=== PATIENT | female | born 1995 | race Caucasian/White ===

== ENCOUNTER 2016-06-18 01:05 | Emergency (ER) | payer BC ==
[~2016-06-18] VITALS: Ht 172.7 cm; Wt 77.1 kg
[2016-06-18 01:07] VITALS: BP 125/71
--- NOTE | 2016-06-18 01:21 | NUR ---
PT BIB FAMILY C/O N/V X 3 HRS WITH MILD ABD CRAPIMG. N/V X 10, DIARRHEA MORE THAN 5. UA DONE, HGC -, PT DENIES ANY TRAUMA, SKIN IS INTACT, PALE/WARM/DRY; AAOX4, PERRL, WITH EVEN AND STEADY GAIT; LUNGS CLEAR BL, BREATHING UNLABORED; HR EVEN AND REGULAR, BL PERIPHERAL PULSES PRESENT; BS ACTIVE X4, NO TENDERNESS TO PALPATION. PT DENIES ANY FEVER, CP, SOB, OR COUGH AT THIS TIME; PT STATES 3/10 PAIN AT THIS TIME; VSS; PATIENT POSITIONED FOR COMFORT; HOB ELEVATED; BEDRAILS UP X2; BED DOWN. ER MD TO JORJE
[2016-06-18] MEDS ORDERED: NACL 0.9% 1,000 ML IV ONE (01:31)
[2016-06-18] MEDS ORDERED: ONDANSETRON 4 MG/2 ML VIAL IVP ONE (01:35)
[2016-06-18] MEDS ORDERED: DICYCLOMINE 20 MG/2 ML VIAL IM ONE (01:40)
[2016-06-18 01:52] LABS: HEMATOCRIT 49.1 % (36-48); HEMOGLOBIN 16.3 g/dL (12.0-16.0); MEAN CORPUSCULAR HEMOGLOBIN 30 pg (27-31); MEAN CORPUSCULAR HGB CONC 33 g/dL (33-37); MEAN CORPUSCULAR VOLUME 91 fL (80-94); PLATELET COUNT (AUTO) 243 K/uL (140-450); RED BLOOD CELL COUNT(AUTO) 5.41 MIL/uL (4.20-5.40); RED CELL DISTRIBUTION WIDTH 11.8 % (11.6-13.7)
[2016-06-18 02:10] LABS: WHITE BLOOD COUNT (AUTO) 19.9 K/uL (4.8-10.8)
[2016-06-18 02:11] LABS: BAND % (MANUAL) 12 % (0-8); LYMPHOCYTES % (MANUAL) 6 % (20-46); MONOCYTES % (MANUAL) 1 % (5-12); NEUTROPHILS % (MANUAL) 81 (43-65)
--- NOTE | 2016-06-18 02:11 | NUR ---
IVF/IVP/IM MEDS GIVEN BY ROSE RHODES AT THIS TIME
[2016-06-18 02:12] LABS: ALBUMIN 4.5 g/dL (3.4-5.0); ANION GAP 18.1 (8-16); CALCIUM 9.5 mg/dL (8.5-10.1); CARBON DIOXIDE 20.9 mmol/L (21-32); CREATININE 0.8 mg/dL (0.6-1.3); TOTAL BILIRUBIN 1.2 mg/dL (0.0-1.0); TOTAL PROTEIN, SERUM 8.2 g/dL (6.4-8.2)
--- NOTE | 2016-06-18 03:41 | NUR ---
PT SEEMS TO BE RESTING COMFORTABLY IN BED. NO SOB NOTED AT THIS TIME. WILL CONTINUE TO MONITOR.
[2016-06-18 04:01] VITALS: BP 112/52
--- NOTE | 2016-06-18 04:01 | NUR ---
Patient discharged with v/s stable. Written and verbal after care instructions given and explained. Patient alert, oriented and verbalized understanding of instructions. Ambulatory with steady gait. All questions addressed prior to discharge. ID band removed. Patient advised to follow up with PMD. Rx of BENTYL, FLAGYL, ZOFRAN given. Patient educated on indication of medication including possible reaction and side effects. Opportunity to ask questions provided and answered.
== END 2016-06-18 04:01 | disposition home or self-care (01) ==
LOC: MED 01:05
DX: R11.2 Nausea with vomiting, unspecified (principal); R19.7 Diarrhea, unspecified; R10.84 Generalized abdominal pain
CPT/HCPCS: 36415; 74176; 80053; 81002; 81025; 83690; 85025; 96361; 96372; 96374; 99285; J0500; J2405; J7030